=== PATIENT | female | born 1970 | race African-American/Black ===

== ENCOUNTER 2018-10-14 09:05 | Inpatient (IN) | payer MEDICAID, OTHER ==
[~2018-10-14] VITALS: Ht 160 cm; Wt 113.4 kg
[2018-10-14] MEDS ORDERED: ONDANSETRON HCL 4MG/2ML INJ IV STA (11:01)
[2018-10-14] MEDS ORDERED: SODIUM CHLORIDE 0.9% 1,000 ML IV ONE (11:01)
[2018-10-14 11:30] LABS: BASOPHILS % 0.8 % (0.0-2.0); HEMATOCRIT. 39.1 % (36.0-48.0); HEMOGLOBIN. 12.9 g/dL (12.0-16.0); LYMPHOCYTES % 28.4 % (20.0-50.0); MEAN CORPUSCULAR HEMOGLOBIN 26.1 pg (28.0-32.0); MEAN PLATELET VOLUME 9.2 fl (7.4-10.4); MONOCYTES % 10.5 % (2.0-8.0); NEUTROPHILS % 58.3 % (40.0-76.0); PLATELET 221 x1000/uL (130-400); RED BLOOD CELL COUNT 4.95 mill/uL (4.2-5.4); RED CELL DISTRIBUTION WIDTH 16.1 % (11.6-14.6)
[2018-10-14 11:37] LABS: CHLORIDE 109 mEq/L (98-107)
[2018-10-14 11:38] LABS: INR 1.1; PROTHROMBIN TIME 11.3 sec (9.1-11.1)
[2018-10-14] MEDS ORDERED: KETOROLAC 30MG/ML VIAL IV ONE (12:45)
[2018-10-14 14:01] LABS: CLARITY URINE TURBID (CLEAR); COLOR URINE DARK YELLOW (YELLOW); KETONES URINE NEGATIVE (NEGATIVE); LEUKOCYTE ESTERASE URINE 2+ (NEGATIVE); NITRITE URINE POSITIVE (NEGATIVE); OCCULT BLOOD URINE TRACE (NEGATIVE); PROTEIN URINE TRACE (NEGATIVE)
[2018-10-14] MEDS ORDERED: MORPHINE SULFATE 4 MG/ML CPJ (NOT FOR IM USE) IV SCH (15:45)
[2018-10-14] MEDS ORDERED: CEFTRIAXONE 1 G PREMIX 50 ML IV SCH (15:45)
[2018-10-14 20:15] LABS: HEPATITIS A AB IGM NEGATIVE (NEGATIVE)
[2018-10-14 20:57] LABS: HEPATITIS B SURFACE ANTIGEN REACTIVE PEND CONFIR
[2018-10-14] MEDS: MORPHINE SULFATE 4 MG/ML CPJ (NOT FOR IM USE) IV PRN (23:09)
[2018-10-14] MEDS: ONDANSETRON HCL 4MG/2ML INJ IV PRN (23:09)
[2018-10-15] MEDS: MORPHINE SULFATE 4 MG/ML CPJ (NOT FOR IM USE) IV PRN ×2 (05:17→13:14)
[2018-10-15] MEDS: ONDANSETRON HCL 4MG/2ML INJ IV PRN ×3 (05:17→22:20)
[2018-10-15 05:59] LABS: BASOPHILS % 1.6 % (0.0-2.0); EOSINOPHILS % 3.7 % (0.0-5.0); HEMATOCRIT. 38.2 % (36.0-48.0); HEMOGLOBIN. 12.4 g/dL (12.0-16.0); LYMPHOCYTES % 33.6 % (20.0-50.0); MEAN CORPUSCULAR HEMOGLOBIN 26.3 pg (28.0-32.0); MEAN CORPUSCULAR VOLUME 81.1 fL (81.0-99.0); MEAN PLATELET VOLUME 9.6 fl (7.4-10.4); MONOCYTES % 10.3 % (2.0-8.0); NEUTROPHILS % 50.8 % (40.0-76.0); PLATELET 182 x1000/uL (130-400); RED BLOOD CELL COUNT 4.71 mill/uL (4.2-5.4); RED CELL DISTRIBUTION WIDTH 16.6 % (11.6-14.6)
[2018-10-15 06:05] LABS: INR 1.2; PROTHROMBIN TIME 11.6 sec (9.1-11.1)
[2018-10-15 06:06] LABS: CHLORIDE 111 mEq/L (98-107)
[2018-10-15 08:00] VITALS: BP 142/72
[2018-10-15 09:07] VITALS: BP 142/82
[2018-10-15 12:00] VITALS: BP 127/80
[2018-10-15] MEDS: DEXT 5%/0.45% NACL 1000ML 1,000 ML IV SCH (12:03)
[2018-10-15 16:00] VITALS: BP 142/71
[2018-10-15] MEDS: CEFTRIAXONE 1 G PREMIX 50 ML IV SCH (17:50)
[2018-10-15] MEDS: TENOFOVIR 300MG TABLET PO SCH (18:15)
[2018-10-15 18:28] LABS: INR 1.2; PROTHROMBIN TIME 11.6 sec (9.1-11.1)
[2018-10-15 20:00] VITALS: BP 141/79
[2018-10-15] MEDS ORDERED: MORPHINE SULFATE 10 MG/ML CPJ IV PRN (20:30)
[2018-10-15] MEDS: DIPHENHYDRAMINE 50MG/ML VIAL IV PRN (20:42)
[2018-10-16] VITALS: BP 119/54
[2018-10-16 04:00] VITALS: BP 139/84
[2018-10-16] MEDS: DEXT 5%/0.45% NACL 1000ML 1,000 ML IV SCH ×2 (04:13→13:00)
[2018-10-16] MEDS: MORPHINE SULFATE 4 MG/ML CPJ (NOT FOR IM USE) IV PRN ×2 (06:18→13:41)
[2018-10-16 08:00] VITALS: BP 154/75
[2018-10-16] MEDS: ONDANSETRON HCL 4MG/2ML INJ IV PRN ×2 (09:05→13:05)
[2018-10-16] MEDS: TENOFOVIR 300MG TABLET PO SCH (09:05)
[2018-10-16 11:58] VITALS: BP 140/74
[2018-10-16 13:39] LABS: HBSAG CONFIRMATION Positive (.); HBSAG SCREEN Confirm. indicated (Negative)
[2018-10-16] MEDS: DIPHENHYDRAMINE 50MG/ML VIAL IV PRN (13:41)
[2018-10-16 16:07] VITALS: BP 143/77
[2018-10-16] MEDS: CEFTRIAXONE 1 G PREMIX 50 ML IV SCH (18:20)
[2018-10-16 20:00] VITALS: BP 130/74
[2018-10-17] VITALS: BP 143/85
[2018-10-17] MEDS: DEXT 5%/0.45% NACL 1000ML 1,000 ML IV SCH (03:30)
[2018-10-17] MEDS: ONDANSETRON HCL 4MG/2ML INJ IV PRN (03:31)
[2018-10-17] MEDS: MORPHINE SULFATE 4 MG/ML CPJ (NOT FOR IM USE) IV PRN (03:31)
[2018-10-17 04:00] VITALS: BP 133/77
[2018-10-17 06:58] LABS: INR 1.3; PROTHROMBIN TIME 12.8 sec (9.1-11.1)
[2018-10-17] MEDS: TENOFOVIR 300MG TABLET PO SCH (09:13)
[2018-10-17 14:26] VITALS: BP 134/89
== END 2018-10-17 13:50 | disposition home or self-care (01) | DRG 463 ==
LOC: ER 09:05 → EDBEDREQ 18:55 → 6EST 19:59 → EDBEDREQTM 20:02 → EDBEDREQ 20:02 → ENRESERV 10-15 00:36 → CANRESERV 10-15 00:36 → EDBEDREQSVC 10-15 02:41 → EDBEDREQDT 10-15 02:41 → EDBEDREQTM 10-15 02:41 → EDBEDREQDT 10-15 02:42 → EDBEDREQTM 10-15 02:42 → ENRESERV 10-15 07:20
PROVIDERS: ADMIT Internal Medicine; ATTEND Internal Medicine
DX: N39.0 Urinary tract infection, site not specified (principal); K72.00 Acute and subacute hepatic failure without coma; B16.9 Acute hepatitis B without delta-agent and without hepatic coma; F12.90 Cannabis use, unspecified, uncomplicated; I10 Essential (primary) hypertension; F17.200 Nicotine dependence, unspecified, uncomplicated; Z82.49 Family history of ischemic heart disease and other diseases of the circulatory system; E44.0 Moderate protein-calorie malnutrition
CPT/HCPCS: 36415; 76705; 80076; 82248; 86705; 86709; 86803; 87077; 87186; 87340; 87517; 96365; 96375; 99285; J0696; J1200; J1885; J2270; J2405; J7030

== ENCOUNTER 2020-10-21 05:15 | Emergency (ER) | payer MEDICAID ==
[~2020-10-21] VITALS: Ht 165.1 cm; Wt 100.0 kg
[2020-10-21 07:30] VITALS: BP 132/78
[2020-10-21 08:03] LABS: BASOPHILS % 0.8 % (0.0-2.0); EOSINOPHILS % 0.6 % (0.0-5.0); HEMATOCRIT. 36.2 % (36.0-48.0); HEMOGLOBIN. 11.4 g/dL (12.0-16.0); LYMPHOCYTES % 14.3 % (20.0-50.0); MEAN CORPUSCULAR HEMOGLOBIN 25.1 pg (28.0-32.0); MEAN CORPUSCULAR VOLUME 79.9 fL (81.0-99.0); MEAN PLATELET VOLUME 9.9 fl (7.4-10.4); MONOCYTES % 4.4 % (2.0-8.0); NEUTROPHILS % 79.9 % (40.0-76.0); PLATELET 225 x1000/uL (130-400); RED BLOOD CELL COUNT 4.53 mill/uL (4.2-5.4); RED CELL DISTRIBUTION WIDTH 15.2 % (11.6-14.6)
[2020-10-21 08:23] LABS: D-DIMER 6.99 mg/L FEU (<0.50); PROTHROMBIN TIME 10.6 sec (9.6-11.0)
[2020-10-21 08:24] LABS: CHLORIDE 110 mEq/L (98-107)
[2020-10-21 08:42] LABS: HCG SCREEN NEGATIVE
== END 2020-10-21 09:58 | disposition home or self-care (01) ==
LOC: ER 06:08
DX: E04.1 Nontoxic single thyroid nodule (principal); R00.0 Tachycardia, unspecified; I10 Essential (primary) hypertension; F12.90 Cannabis use, unspecified, uncomplicated
CPT/HCPCS: 36415; 71045; 71275; 80053; 81025; 83880; 84484; 84703; 85025; 85379; 93005; 99285

== ENCOUNTER 2021-03-01 10:32 | Inpatient (IN) | payer MEDICAID, OTHER ==
[~2021-03-01] VITALS: Ht 162.6 cm; Wt 122.5 kg
[2021-03-01] MEDS ORDERED: SODIUM CHLORIDE 0.9% 1,000 ML IV ONE (11:15)
[2021-03-01 11:53] LABS: BASOPHILS % 0.3 % (0.0-2.0); EOSINOPHILS % 0.2 % (0.0-5.0); HEMATOCRIT. 33.1 % (36.0-48.0); HEMOGLOBIN. 10.3 g/dL (12.0-16.0); LYMPHOCYTES % 20.8 % (20.0-50.0); MEAN CORPUSCULAR VOLUME 77.5 fL (81.0-99.0); MEAN PLATELET VOLUME 9.2 fl (7.4-10.4); MONOCYTES % 5.5 % (2.0-8.0); NEUTROPHILS % 73.2 % (40.0-76.0); PLATELET 262 x1000/uL (130-400); RED BLOOD CELL COUNT 4.27 mill/uL (4.2-5.4); RED CELL DISTRIBUTION WIDTH 19.3 % (11.6-14.6)
[2021-03-01 11:59] LABS: CHLORIDE 112 mEq/L (98-107)
[2021-03-01 12:03] LABS: HCG SCREEN NEGATIVE; INR 1.1; PROTHROMBIN TIME 11.4 sec (9.6-11.0)
[2021-03-01] MEDS ORDERED: MORPHINE SULFATE 4 MG/ML CPJ (NOT FOR IM USE) IV ONE (12:15)
[2021-03-01] MEDS ORDERED: ONDANSETRON HCL 4MG/2ML INJ IV ONE (12:15)
[2021-03-01] MEDS ORDERED: PIPERACILLIN/TAZ 3.375G PREMIX 50 ML IV NR (15:15)
[2021-03-01] MEDS ORDERED: PIPERACILLIN/TAZOBACTAM 3.375GM/50ML PREMIX IV ONE (15:15)
[2021-03-01 17:13] LABS: CLARITY URINE CLEAR (CLEAR); COLOR URINE YELLOW (YELLOW); KETONES URINE NEGATIVE (NEGATIVE); LEUKOCYTE ESTERASE URINE 1+ (NEGATIVE); NITRITE URINE POSITIVE (NEGATIVE); OCCULT BLOOD URINE TRACE (NEGATIVE); PROTEIN URINE TRACE (NEGATIVE); SPECIFIC GRAVITY URINE 1.016 (1.005-1.030); UROBILINOGEN URINE 0.2 E.U./dL (0.2-1.0)
[2021-03-01 17:23] LABS: *AMPHETAMINES SCREEN URINE NEGATIVE (NEGATIVE)
[2021-03-01 17:24] LABS: *BARBITURATES SCREEN URINE NEGATIVE (NEGATIVE); *BENZODIAZEPINES SCREEN URINE NEGATIVE (NEGATIVE); *COCAINE SCREEN URINE NEGATIVE (NEGATIVE); METHADONE URINE SCREEN NEGATIVE (NEGATIVE)
[2021-03-01 17:25] LABS: PHENCYCLIDINE URINE SCREEN NEGATIVE (NEGATIVE)
[2021-03-01 17:33] LABS: CANNABINOID URINE SCREEN PRESUMTIVE POSITIVE (NEGATIVE); OPIATES URINE SCREEN PRESUMTIVE POSITIVE (NEGATIVE)
[2021-03-01 20:00] VITALS: BP 195/123
[2021-03-01 21:30] VITALS: BP 195/123
[2021-03-01] MEDS ORDERED: HYDRALAZINE HCL 10MG TABLET PO PRN (22:15)
[2021-03-01] MEDS ORDERED: HYDRALAZINE 20MG/ML VIAL IV PRN (22:30)
[2021-03-01] MEDS ORDERED: HYDRALAZINE 10 MG in SODIUM CHLORIDE 0.9% 49.5 ML IV PRN (22:30)
[2021-03-01] MEDS ORDERED: CARV3.1242 MT (22:35)
[2021-03-01] MEDS ORDERED: P20 MT (22:35)
[2021-03-01] MEDS ORDERED: LISI2.5T47 MT (22:35)
[2021-03-01] MEDS ORDERED: UMEC1DIS INH (22:35)
[2021-03-01] MEDS ORDERED: AZIT250T12 MT (22:35)
[2021-03-01] MEDS: MORPHINE SULFATE 2 MG/ML CPJ (NOT FOR IM USE) IV PRN (22:44)
[2021-03-01] MEDS ORDERED: *PATIENT'S OWN MEDICATION STORAGE XX SCH (23:00)
[2021-03-02] VITALS (10 sets, daily range): BP systolic 121–184; BP diastolic 73–118
[2021-03-02] MEDS: LEVOFLOXACIN 500MG PREMIX 100 ML IV SCH ×2 (00:12→23:05)
[2021-03-02] MEDS: DEXT 5%/0.45% NACL KCL 20MEQ/L 1,000 ML IV SCH ×3 (00:13→19:11)
[2021-03-02] MEDS: MORPHINE SULFATE 2 MG/ML CPJ (NOT FOR IM USE) IV PRN ×3 (05:15→20:43)
[2021-03-02] MEDS: ONDANSETRON HCL 4MG/2ML INJ IV PRN ×2 (05:16→13:25)
[2021-03-02 06:36] LABS: BASOPHILS % 0.5 % (0.0-2.0); EOSINOPHILS % 0.2 % (0.0-5.0); HEMATOCRIT. 33.3 % (36.0-48.0); HEMOGLOBIN. 10.3 g/dL (12.0-16.0); LYMPHOCYTES % 25.1 % (20.0-50.0); MEAN CORPUSCULAR HEMOGLOBIN 24.4 pg (28.0-32.0); MEAN CORPUSCULAR VOLUME 78.8 fL (81.0-99.0); MEAN PLATELET VOLUME 9.4 fl (7.4-10.4); MONOCYTES % 5.9 % (2.0-8.0); NEUTROPHILS % 68.3 % (40.0-76.0); PLATELET 269 x1000/uL (130-400); RED BLOOD CELL COUNT 4.23 mill/uL (4.2-5.4); RED CELL DISTRIBUTION WIDTH 19.4 % (11.6-14.6)
[2021-03-02 06:58] LABS: CHLORIDE 112 mEq/L (98-107)
[2021-03-02] MEDS: PANTOPRAZOLE SODIUM 40 MG/VIAL IV SCH (09:15)
[2021-03-02] MEDS: LOSARTAN POTASSIUM 100 MG TABLET PO SCH (14:20)
[2021-03-02] MEDS: AMLODIPINE 10MG TABLET PO SCH (14:21)
[2021-03-02] MEDS ORDERED: IPRATROPIUM BROMIDE (0.02%) 0.5MG/2.5ML NEB HHN PRN (16:15)
[2021-03-02] MEDS: HYDRALAZINE HCL 100MG TABLET PO SCH (19:11)
[2021-03-03] VITALS: BP 136/84
[2021-03-03 04:00] VITALS: BP 141/90
[2021-03-03] MEDS: DEXT 5%/0.45% NACL KCL 20MEQ/L 1,000 ML IV SCH (05:00)
[2021-03-03] MEDS: HYDRALAZINE HCL 100MG TABLET PO SCH ×2 (05:21→13:51)
[2021-03-03] MEDS: MORPHINE SULFATE 2 MG/ML CPJ (NOT FOR IM USE) IV PRN (06:32)
[2021-03-03 06:51] LABS: BASOPHILS % 0.9 % (0.0-2.0); EOSINOPHILS % 1.2 % (0.0-5.0); HEMATOCRIT. 34.4 % (36.0-48.0); HEMOGLOBIN. 10.7 g/dL (12.0-16.0); LYMPHOCYTES % 26.7 % (20.0-50.0); MEAN CORPUSCULAR HEMOGLOBIN 24.3 pg (28.0-32.0); MEAN CORPUSCULAR VOLUME 78.1 fL (81.0-99.0); MEAN PLATELET VOLUME 9.5 fl (7.4-10.4); MONOCYTES % 5.4 % (2.0-8.0); NEUTROPHILS % 65.8 % (40.0-76.0); PLATELET 263 x1000/uL (130-400); RED BLOOD CELL COUNT 4.41 mill/uL (4.2-5.4); RED CELL DISTRIBUTION WIDTH 19.2 % (11.6-14.6)
[2021-03-03 07:00] LABS: CHLORIDE 107 mEq/L (98-107)
[2021-03-03 08:00] VITALS: BP 132/94
[2021-03-03] MEDS: PANTOPRAZOLE SODIUM 40 MG/VIAL IV SCH (09:11)
[2021-03-03] MEDS: AMLODIPINE 10MG TABLET PO SCH (09:11)
[2021-03-03] MEDS: LOSARTAN POTASSIUM 100 MG TABLET PO SCH (09:11)
[2021-03-03 12:00] VITALS: BP 120/70
[2021-03-03] MEDS ORDERED: HYDR100T26 PO ×2 (13:34)
[2021-03-03] MEDS ORDERED: LOSA100T3 PO ×2 (13:34)
[2021-03-03] MEDS ORDERED: LEVO500T89 MT ×3 (13:34→13:35)
[2021-03-03] MEDS ORDERED: AMLO10TA80 PO ×2 (13:34)
[2021-03-03] MEDS ORDERED: AMLO10TA80 MT (13:35)
[2021-03-03] MEDS ORDERED: LOSA100T32 MT (13:35)
[2021-03-03] MEDS ORDERED: HYDR100T26 MT (13:35)
[2021-03-03 15:06] VITALS: BP 120/70
== END 2021-03-03 15:30 | disposition home or self-care (01) | DRG 720 ==
LOC: ER 10:32 → 6EST 15:41 → ENRESERV 20:23 → 6EST 21:50
PROVIDERS: ADMIT Internal Medicine; ATTEND Internal Medicine
DX: A41.9 Sepsis, unspecified organism (principal); E44.0 Moderate protein-calorie malnutrition; E87.5 Hyperkalemia; Z68.42 Body mass index [BMI] 45.0-49.9, adult; F17.210 Nicotine dependence, cigarettes, uncomplicated; I16.0 Hypertensive urgency; N39.0 Urinary tract infection, site not specified; I10 Essential (primary) hypertension; E66.9 Obesity, unspecified; F12.90 Cannabis use, unspecified, uncomplicated; J44.9 Chronic obstructive pulmonary disease, unspecified; Z71.6 Tobacco abuse counseling; K80.20 Calculus of gallbladder without cholecystitis without obstruction
CPT/HCPCS: 36415; 76705; 78227; 80048; 80053; 80076; 80305; 81003; 84443; 84703; 85025; 97161; 99285; A9537; C9113; J0360; J1956; J2270; J2405; J2543; J7030